=== PATIENT | male | born 1940 | race Caucasian/White ===

== ENCOUNTER 2016-09-28 13:55 | Emergency (ER) | payer OTHER ==
[~2016-09-28] VITALS: Ht 188 cm; Wt 108.0 kg
[~2016-09-28 13:55] MED LIST: CIPRO500 MG PO; CLONAZEPAM2 MG PO; EFFEXOR-XR37.5 MG PO; EFFEXOR-XR75 MG PO; FINASTERIDE5 M1 PO; FLOMAX0.4 MG PO; GABAPENTIN400 M1 PO; HYDROCODONE/ACE1 TA2 PO; LAC PO; MAC100 PO; METOPROLOL SUCC50 M2 PO; PLA75 PO; PROS5 PO; PYR200 PO
[2016-09-28 14:11] VITALS: BP 154/106
== END 2016-09-28 15:29 | disposition home or self-care (01) ==
LOC: ED 13:55
DX: N39.0 Urinary tract infection, site not specified (principal)
CPT/HCPCS: J0696

== ENCOUNTER 2016-11-08 10:38 | Inpatient (IN) | payer OTHER ==
[~2016-11-08] VITALS: Ht 185.4 cm; Wt 106.6 kg
--- NOTE | 2016-11-08 10:57 | NUR ---
DR ADAMS AT BEDSIDE FOR MSE
--- NOTE | 2016-11-08 11:07 | NUR ---
PT C/O PRODUCTIVE COUGH X2 WKS. PT IS AAOX4, RESP EVEN AND UNLABORED, RA. SLIGHT NAKITA CONGESTION CORNELIA. PT REPORTS PRODUCTIVE COUGH WITH YELLOW PHLEGM. PT ALSO REPORTS EXPERIENCING RECENT FEVERS. PT DENEIS CHEST PAIN, DENIES SOB, DENIES ABD PAIN, DENIES N/V/D. PT AT BEDSIDE AND EXPRESSES CONCERN TO DR ADAMS THAT PT HAS BEEN EXPERIENCING PERIOS OF FORGETFULLNESS AND CHANGE IN PERSONALITY. DR ADAMS ADDRESSED HER CONCERNS
--- NOTE | 2016-11-08 11:11 | NUR ---
ELECTRIC SCREW DRIVER OPERATOR AT BEDSIDE FOR BLOOD DRAW
--- NOTE | 2016-11-08 11:22 | NUR ---
PT TAKEN VIA [facility] FOR CT SCAN OF HEAD
--- NOTE | 2016-11-08 11:33 | NUR ---
R/T AT BEDSIDE FOR BREATHING TREATMENT AND ABG BLOOD DRAW
[2016-11-08 11:34] LABS: BASOPHIL % 0.6 % (0-2); PLATELET COUNT 238 x10^3mcL (130-400); RED CELL DISTRIBUTION WIDTH 13.3 % (11.5-14.5)
--- NOTE | 2016-11-08 11:38 | NUR ---
RADIOLOGY AT BEDSIDE FOR PCXR
[2016-11-08 11:41] LABS: CALCIUM 8.8 mg/dL (8.5-10.1); CARBON DIOXIDE 27.9 mmol/L (21-32); CHLORIDE SERUM 107 mmol/L (98-107); CREATININE SERUM 0.8 mg/dL (0.7-1.3); GLUCOSE SERUM 102 mg/dL (74-106); POTASSIUM SERUM 3.6 mmol/L (3.5-5.1); SODIUM SERUM 144 mmol/L (136-145)
[2016-11-08 11:53] LABS: ALBUMIN 3.6 g/dL (3.4-5.0); ALKALINE PHOSPHATASE 105 U/L (46-116); ALT/SGPT 24 U/L (16-63); AMYLASE 43 U/L (25-115); AST/SGOT 18 U/L (15-37); BILIRUBIN TOTAL 1.74 mg/dL (0.20-1.00); LIPASE 157 IU/L (73-393); T4(THYROXINE) 7.3 ug/dL (4.7-13.3); TOTAL PROTEIN, SERUM 6.4 g/dL (6.4-8.2)
[2016-11-08 11:54] LABS: CHOLESTEROL 92 mg/dL (<200); HDL CHOLESTEROL 28 mg/dL (40-60)
--- NOTE | 2016-11-08 12:01 | NUR ---
PT GIVEN INSTRUCTIONS ON PEAK FLOW. PREDICTED PEAK FLOW OF 515. PRE HHN TX PEAK FLOW OF 330. POST HHN TX PEAK FLOW OF 450. WILL DOCUMENT IN INTERVENTIONS.
--- NOTE | 2016-11-08 12:29 | NUR ---
PT GIVEN URINAL FOR URINE COLLECTION
--- NOTE | 2016-11-08 12:30 | NUR ---
PT REMAINS IN STABLE CONDITION. RESP EVEN AND UNLABORED, BREATHING TREATMENT IN PROGRESS. VS STABLE. NAD NOTED
[2016-11-08 12:44] LABS: microscopic required? YES; urine erythrocyte NEGATIVE (NEGATIVE)
[2016-11-08] MEDS ORDERED: LEVOTHYROXIN0.025 M2 (12:53)
--- NOTE | 2016-11-08 12:53 | NUR ---
MED REC UPDATED WITH INFO FROM PT
[2016-11-08 13:04] LABS: AMPHETAMINE QUAL UR NONE DETECTED (NEG <=1000)
--- NOTE | 2016-11-08 13:08 | NUR ---
REPORT GIVEN TO LADONNA MOLINA IN [facility] FOR CONTINUITY OF CARE
[2016-11-08 13:43] LABS: T3 TOTAL 1.11 ng/mL
[2016-11-08 13:44] LABS: MAGNESIUM 2.1 mg/dL (1.8-2.4); PHOSPHOROUS 3.5 mg/dL (2.5-4.9)
[2016-11-08 13:47] VITALS: BP 130/79
[2016-11-08 13:47] LABS: CHOLESTEROL/HDL RATIO 3.1
[2016-11-08 13:51] VITALS: BP 146/81
--- NOTE | 2016-11-08 13:59 | NUR ---
RECEIV[facility]. ORIENTED PT TO ROOM AND SURROUNDINGS. IV NOTED TO LW PATENT AND INTACT. TELE 41 PLACED ON PT READING NSR WITH PVCS. INSTRUCTED PT ON THE USE OF CALL LIGHT FOR ASSISTANCE. ENDOSRED PT TO PRIMARY NURSE BENI
[2016-11-08 14:01] LABS: FREE T4 1.06 ng/dL (0.76-1.46); FREE THYROXINE INDEX 2.7 ug/dL (1.4-4.5); T4(THYROXINE) 8.3 ug/dL (4.7-13.3)
--- NOTE | 2016-11-08 15:04 | NUR ---
PT RESTING IN BED, NO RESPIRATORY DISTRESS NOTED, DENIES PAIN, HEADACHE, NAUSEA, AND CHEST PAIN. CUSION PADS PLACED ON BED FOR SEIZURE PRECAUTIONS. CURRENTLY NPO.
--- NOTE | 2016-11-08 15:32 | NUR ---
DR BOYER MADE AWARE OF URINALYSIS RESULT POSITIVE [employer] AND TELE READING SR WITH PVC'S. ANTICIPATING NEW ORDERS.
--- NOTE | 2016-11-08 16:37 | NUR ---
PT RESTING IN BED WITH NO RESPIRATORY DISTRESS, DENIES PAIN, HEADACHE, NAUSEA, AND CHEST PAIN.
[2016-11-08 17:12] VITALS: BP 118/60
--- NOTE | 2016-11-08 18:35 | NUR ---
PT RESTING IN BED WITHOUT RESPIRATORY DISTRESS, DENIES PAIN, NAUSEA, SOB, HEADACHE, AND CHEST PAIN.
--- NOTE | 2016-11-08 20:10 | NUR ---
REC'D PT FROM AM NURSE. AAOX4. LAYING IN BED COMFORTABLY. DENIES PAIN. TELE #41 NSR WITH PVC. LUNG SOUNDS ARE DIMINISHED BUT CTA, NO SOB, NO MARTINEZ/D. BREATH SOUNDS ARE EVEN AND UNLABORED,ACTIVE X4. IV INTACT AND PATENT, INFUSING WELL. BED IN LOWEST POSITION. CALL LIGHT WITHIN REACH. WILL CONTINUE TO MONITOR.
[2016-11-08 20:25] LABS: BILIRUBIN DIRECT 0.3 mg/dL (0.0-0.2); BILIRUBIN TOTAL 1.67 mg/dL (0.20-1.00)
[2016-11-08 20:29] VITALS: BP 110/45
[2016-11-08 22:21] VITALS: BP 110/45
--- NOTE | 2016-11-09 03:33 | NUR ---
PT IS ASLEEP AND RESTING WELL. NO SIGNS OF DISTRESS NOTED. NO SIGNIFICANT CHANGES NOTED. IV INTACT AND PATENT, INFUSING WELL. WILL CONTINUE TO MONITOR.
[2016-11-09 05:33] VITALS: BP 166/79
--- NOTE | 2016-11-09 06:59 | NUR ---
PT SLEPT THROUGHOUT THE SHIFT. NO DISTRESS NOTED. NO SIGNIFICANT CHANGES NOTED. WILL CONTINUE TO MONITOR AND ENDORSE ALL CARE TO AM NURSE.
--- NOTE | 2016-11-09 07:43 | NUR ---
PT RECEIVED DURING CHANGE OF SHIFT, A/OX4, SZ PRECAUTIONS, TELE 41, NSR WITH PVC'S, DENIES CHEST PAIN, PULSES PRESENT, TRACE EDEMA BLE, LUNGS DIMINISHED, DENIES SOB, BREATHING EVEN AND UNLABORED, NONPRODUCTIVE COUGH PRESENT, BOWEL SOUNDS ACTIVE, DENIES N/V/D, INCONTINENT OF URINE AT TIMES, AMBULATORY, SKIN WARM DRY INTACT, DENIES PAIN AT THIS TIME, IV TO LT WRIST, IV WNL, CALM AND COOPERATIVE, CALL LIGHT WITHIN REACH, WILL CONTINUE TO MONITOR.
--- NOTE | 2016-11-09 09:00 | NUR ---
RT AT BEDSIDE.
--- NOTE | 2016-11-09 09:17 | NUR ---
PT DENIES PAIN, DENIES SOB, CALL LIGHT WITHIN REACH, MEDS GIVEN, WILL CONTINUE TO MONITOR.
--- NOTE | 2016-11-09 09:22 | NUR ---
DR. AHUJA AND RESIDENTS MAKING ROUNDS, PLAN OF CARE DISCUSSED.
--- NOTE | 2016-11-09 09:52 | NUR ---
PT NOTES [id number] RN CLEARED PATIENT FOR PHYSICAL THERAPY. PATIENT WAS AGREEABLE WITH PHYSICAL THERAPY STAFF. RECEIVED PATIENT USING THE BATHROOM. ALERT, ORIENTED X 4 PRECAUTION: FALL, CONTACT PRECAUTION, [place] S: PATIENT DENIES PAIN BUT COMPLAINS OF COUGHING O: MMT: 4/5 TO NAKITA UE/LE ROM: WFL TO NAKITA UE/LE SENSATION: INTACT BED MOBILITY: ROLLING- INDEPENDENT; SCOOTING - SBA; SUPINE <> SITTING - SBA TRANSFER: SITTING <> STANDING - SBA SITTING BALANCE: GOOD STANDING BALANCE: GOOD ENDURANCE: GOOD AMBULATION: SBA X APPROXIMATELY 40 FEET WITHOUT A.D. WITH INCREASED VELOCITY A: PATIENT TOLERATED PHYSICAL THERAPY WELL. DENIES ANY PAIN. AMBULATED INSIDE THE ROOM WITH NO RESPIRATORY DISTRESS. NO LOB / NO DIZZINESS. PATIENT REPORTED THAT HE IS AT HIS BASELINE WITH FUNCTIONAL MOBILITY. PATIENT WAS EDUCATED WITH SAFE MOBILITY TO AVOID THE RISK OF FALLING WITH GOOD UNDERSTANDING. NO FURTHER PHYSICAL THERAPY REQUIRED. DISCHARGE PHYSICAL THERAPY. P: D/C PHYSICAL THERAPY SERVICES. MAY AMBULATE WITH NURSING. PT EVALUATION: 40 GAIT TRAININ [id number] TUG - 10
[2016-11-09 10:07] VITALS: BP 135/75
--- NOTE | 2016-11-09 10:10 | NUR ---
PT DENIES SOB, DENIES PAIN, WATCHING TV, CALL LIGHT WITHIN REACH, WILL CONTINUE TO MONITOR.
[2016-11-09 10:35] LABS: CARBON DIOXIDE 25.7 mmol/L (21-32); CHLORIDE SERUM 109 mmol/L (98-107); GLUCOSE SERUM 160 mg/dL (74-106); MAGNESIUM 1.8 mg/dL (1.8-2.4); PHOSPHOROUS 2.1 mg/dL (2.5-4.9); POTASSIUM SERUM 4.9 mmol/L (3.5-5.1); SODIUM SERUM 145 mmol/L (136-145)
[2016-11-09 10:38] LABS: PLATELET COUNT 229 x10^3mcL (130-400); RED CELL DISTRIBUTION WIDTH 13.5 % (11.5-14.5)
[2016-11-09 10:40] LABS: BASOPHIL % 0 % (0-2)
--- NOTE | 2016-11-09 10:59 | NUR ---
REPORTED WBC'S OF 17.[address] BOYER.
--- NOTE | 2016-11-09 11:44 | NUR ---
PT DENIES SOB, DENIES PAIN, NONPRODUCTIVE COUGH PRESENT, CALL LIGHT WITHIN REACH, WILL CONTINUE TO MONITOR.
--- NOTE | 2016-11-09 12:23 | NUR ---
CARDIAC ECHO IN PROGRESS.
--- NOTE | 2016-11-09 13:07 | NUR ---
ULTRASOUND AT BEDSIDE, WILL CONTINUE TO MONITOR.
[2016-11-09 13:37] VITALS: BP 159/99
--- NOTE | 2016-11-09 13:53 | NUR ---
PT BP 159/99, HR 83, DR. BOYER NOTIFIED, WILL AWAIT FURTHER ORDERS.
--- NOTE | 2016-11-09 14:15 | NUR ---
PT MEDICATED FOR BP, DENIES SOB, DENIES PAIN, CALL LIGHT WITHIN REACH, WILL CONTINUE TO MONITOR.
--- NOTE | 2016-11-09 15:06 | NUR ---
PT DENIES SOB, DENIES PAIN, WATCHING TV, CALL LIGHT WITHIN REACH, WILL CONTINUE TO MONITOR.
--- NOTE | 2016-11-09 16:13 | NUR ---
PT DENIES SOB, DENIES PAIN, GAS WELL PUMPER AT BEDSIDE ASSISTING PT, CALL LIGHT WITHIN REACH, WILL CONTINUE TO MONITOR.
[2016-11-09 16:48] VITALS: BP 113/56
--- NOTE | 2016-11-09 17:11 | NUR ---
PT RECEIVING BREATHING TX.
--- NOTE | 2016-11-09 18:11 | NUR ---
PT ASLEEP, NO INDICATION OF PAIN, BREATHING EVEN AND UNLABORED, CALL LIGHT WITHIN REACH, WILL ENDORSE PT TO NEXT SHIFT.
--- NOTE | 2016-11-09 19:42 | NUR ---
RECEIVED PT FROM PREVIOUS SHIFT NURSE. PT AOX4. TELE #41, NSR WITH PVCS, HR 78. DENIES CP/PRESSURE. PULSES GOOD, TRACE BLE NOTED. LUNG SOUNDS CLEAR, ON RA. DENIES SOB/ DIFFICULTY BREATHING. BOWEL SOUNDS ACTIVE. AMBULATORY WITHOUT ASSISTANCE. SKIN INTACT. IV IN L. WRIST, INTACT AND PATENT. BED IN LOWEST POSITION. CALL LIGHT WITHIN REACH. WILL CONTINUE TO MONITOR.
[2016-11-09 21:24] VITALS: BP 105/50
[2016-11-09] MEDS ORDERED: LEVOTHYROXINE0.05 M2 PO (22:17)
--- NOTE | 2016-11-10 03:15 | NUR ---
PT RESTING IN BED. RR EVEN AND UNLABORED. NO ACUTE DISTRESS NOTED. BED IN LOWEST POSITION. CALL LIGHT WITHIN REACH. WILL CONTINUE TO MONITOR.
[2016-11-10 06:06] VITALS: BP 144/81
[2016-11-10 06:41] LABS: PLATELET COUNT 238 x10^3mcL (130-400); RED CELL DISTRIBUTION WIDTH 13.5 % (11.5-14.5)
[2016-11-10 06:42] LABS: CALCIUM 8.7 mg/dL (8.5-10.1); CARBON DIOXIDE 30.3 mmol/L (21-32); CHLORIDE SERUM 111 mmol/L (98-107); GLUCOSE SERUM 157 mg/dL (74-106); MAGNESIUM 2.3 mg/dL (1.8-2.4); PHOSPHOROUS 3.2 mg/dL (2.5-4.9); POTASSIUM SERUM 3.9 mmol/L (3.5-5.1); SODIUM SERUM 147 mmol/L (136-145)
[2016-11-10 06:52] LABS: BASOPHIL % 0 % (0-2)
--- NOTE | 2016-11-10 07:55 | NUR ---
PT ASLEEP BUT AROUSABLE, SZ PRECAUTIONS IN PLACE, TELE 41, NSR WITH PVC'S, DENIES CHEST PAIN, PULSES PRESENT, TRACE EDEMA, LUNGS DIMINISHED, DENIES SOB, BREATHING EVEN AND UNLABORED ON RA, REPORTS NONPRODUCTIVE COUGH, BOWEL SOUNDS ACTIVE, DENIES N/V/D, INCONTINENT OF URINE AT TIMES, AMBULATORY, SKIN WARM DRY INTACT, DENIES PAIN, IV TO LT WRIST INFUSING NS AT 75ML/HR, CALM AND COOPERATIVE, CALL LIGHT WITHIN REACH, WILL CONTINUE TO MONITOR.
--- NOTE | 2016-11-10 08:40 | NUR ---
RT AT BEDSIDE.
--- NOTE | 2016-11-10 09:01 | NUR ---
DR. AHUJA AND RESIDENTS MAKING ROUNDS, PLAN OF CARE DISCUSSED.
--- NOTE | 2016-11-10 09:16 | NUR ---
PT DENIES SOB, DENIES PAIN, CALL LIGHT WITHIN REACH, WILL CONTINUE TO MONITOR.
[2016-11-10 09:33] VITALS: BP 144/81
--- NOTE | 2016-11-10 10:08 | NUR ---
PT LOOKING THROUGH HIS OWN BINDER, DENIES SOB, DENIES PAIN, CALL LIGHT WITHIN REACH, WILL CONTINUE TO MONITOR.
[2016-11-10 10:18] VITALS: BP 137/75
--- NOTE | 2016-11-10 11:25 | NUR ---
PT DENIES SOB, DENIES PAIN, WATCHING TV, CALL LIGHT WITHIN REACH, WILL CONTINUE TO MONITOR.
[2016-11-10] MEDS ORDERED: MEDROL DOSEPAK4 MG PO (12:06)
[2016-11-10] MEDS ORDERED: NITROFURANTOIN100 MG PO (12:06)
[2016-11-10] MEDS ORDERED: SIMVASTATIN40 M1 PO (12:07)
[2016-11-10] MEDS ORDERED: FLORASTOR1 CAP PO (12:07)
[2016-11-10] MEDS ORDERED: PROVENTIL0.09 MG/A1 INH (12:09)
[2016-11-10] MEDS ORDERED: PHECLUD PO (12:10)
[2016-11-10] MEDS ORDERED: ZESTRIL20 MG PO (12:11)
--- NOTE | 2016-11-10 12:14 | NUR ---
PT'S AT BEDSIDE, REQUESTING TO SPEAK WITH DR. BOYER, PT CURRENTLY DENIES SOB, DENIES PAIN, CALL LIGHT WITHIN REACH, WILL CONTINUE TO MONITOR.
[2016-11-10] MEDS ORDERED: COZAAR100 MG PO (12:16)
--- NOTE | 2016-11-10 13:17 | NUR ---
PT EATING LUNCH, DENIES SOB, DENIES PAIN, AT BEDSIDE, STATES WILL BE SEEING A CONSULT LATER TODAY, CALL LIGHT WITHIN REACH, WILL CONTINUE TO MONITOR.
--- NOTE | 2016-11-10 14:27 | NUR ---
PT AND RECEIVED DISCHARGE INSTRUCTIONS, VERBALIZED UNDERSTANDING, ALL QUESTIONS ANSWERED, DR. BOYER PRESENT, IV DC'D CATHETER INTACT, TELE 41 DC'D AND RETURNED, E-SCRIPTS EXPLAINED, ARMBANDS DC'D, AND ESCORTED DOWNSTAIRS BY [place] [employer].
== END 2016-11-10 14:23 | disposition home or self-care (01) | DRG 689 ==
LOC: ED 10:38 → DU 12:44
PROVIDERS: Emergency Medicine; Family Medicine; ADMIT Family Medicine
DX: N39.0 Urinary tract infection, site not specified (principal); G93.41 Metabolic encephalopathy; I63.9 Cerebral infarction, unspecified; N17.0 Acute kidney failure with tubular necrosis; R05 Cough; N40.0 Benign prostatic hyperplasia without lower urinary tract symptoms; D72.829 Elevated white blood cell count, unspecified; E02 Subclinical iodine-deficiency hypothyroidism; K76.0 Fatty (change of) liver, not elsewhere classified; E83.39 Other disorders of phosphorus metabolism; K02.9 Dental caries, unspecified; F32.9 Major depressive disorder, single episode, unspecified; I25.10 Atherosclerotic heart disease of native coronary artery without angina pectoris; Z95.5 Presence of coronary angioplasty implant and graft; Z95.0 Presence of cardiac pacemaker; T46.4X5A Adverse effect of angiotensin-converting-enzyme inhibitors, initial encounter; Y92.018 Other place in single-family (private) house as the place of occurrence of the external cause; I25.2 Old myocardial infarction; T38.0X5A Adverse effect of glucocorticoids and synthetic analogues, initial encounter; Y92.238 Other place in hospital as the place of occurrence of the external cause
CPT/HCPCS: 36600; 80307; 83880; 84439; 94150; 97116-GP; G0480; J2920; J2930; J7030; J7613; J7620; J7644; Q0092

== ENCOUNTER 2018-11-26 14:23 | Emergency (ER) | payer OTHER ==
[~2018-11-26] VITALS: Ht 188 cm; Wt 108.9 kg
[~2018-11-26 14:23] MED LIST changes: +COZAAR100 MG PO; +FLORASTOR1 CAP PO; +LEVOTHYROXIN0.025 M2; +LEVOTHYROXINE0.05 M2 PO; +MEDROL DOSEPAK4 MG PO; +NITROFURANTOIN100 MG PO; +PHECLUD PO; +PROVENTIL0.09 MG/A1 INH; +SIMVASTATIN40 M1 PO; +ZESTRIL20 MG PO
[2018-11-26 14:29] VITALS: Ht 188 cm; Wt 108.9 kg
[2018-11-26 16:30] VITALS: BP 145/86
== END 2018-11-26 16:30 | disposition home or self-care (01) ==
LOC: ED 14:23
DX: T25.222A Burn of second degree of left foot, initial encounter (principal); T25.221A Burn of second degree of right foot, initial encounter; I10 Essential (primary) hypertension; Z88.0 Allergy status to penicillin; Z98.890 Other specified postprocedural states; Z95.0 Presence of cardiac pacemaker; X12.XXXA Contact with other hot fluids, initial encounter; Y93.89 Activity, other specified; Y92.89 Other specified places as the place of occurrence of the external cause; Y99.8 Other external cause status
CPT/HCPCS: J1885